=== PATIENT | male | born 1990 | race Caucasian/White ===

== ENCOUNTER 2022-08-08 22:58 | Inpatient (IN) | payer SELFPAY ==
[~2022-08-08] VITALS: Ht 172.7 cm; Wt 63.0 kg
[2022-08-08] MEDS ORDERED: ONDANSETRON HCL 4MG/2ML INJ IV STA (23:04)
[2022-08-08] MEDS ORDERED: SODIUM CHLORIDE 0.9% 1,000 ML IV ONE (23:15)
[2022-08-09 01:02] LABS: HEMATOCRIT. 43.3 % (42.0-52.0); HEMOGLOBIN. 14.3 g/dL (14.0-18.0); MEAN CORPUSCULAR HEMOGLOBIN 28.3 pg (28.0-32.0); MEAN CORPUSCULAR VOLUME 85.5 fL (80.0-94.0); MEAN PLATELET VOLUME 10.3 fl (7.4-10.4); PLATELET 208 x1000/uL (130-400); RED BLOOD CELL COUNT 5.06 mill/uL (4.7-6.1); RED CELL DISTRIBUTION WIDTH 14.5 % (11.6-14.6)
[2022-08-09 01:12] LABS: CHLORIDE 108 mEq/L (98-107)
[2022-08-09 01:25] LABS: ETHANOL BLOOD < 10 mg/dL (-10)
[2022-08-09] MEDS ORDERED: NALO4SPR BOTHNSTRLS (04:01)
[2022-08-09] MEDS ORDERED: ONDA4TAB50 MT (04:01)
[2022-08-09 05:16] LABS: PLATELET ESTIMATE NORMAL
[2022-08-09] MEDS ORDERED: KETOROLAC 30MG/ML VIAL IV ONE (06:45)
[2022-08-09] MEDS ORDERED: ACETAMINOPHEN 325MG TABLET PO PRN ×2 (11:45)
[2022-08-09] MEDS ORDERED: ONDANSETRON HCL 4MG/2ML INJ IV PRN (11:45)
[2022-08-09] MEDS ORDERED: CLONIDINE 0.1MG TABLET PO PRN (11:45)
[2022-08-09] MEDS ORDERED: DOCUSATE SODIUM 100MG CAPSULE PO PRN (11:45)
[2022-08-09] MEDS ORDERED: MAGNESIUM/ALUMINUM HYDROXIDE/SIMETHICONE 30ML UDC PO PRN (11:45)
[2022-08-09] MEDS ORDERED: GUAIFENESIN 200MG/10ML SUGAR FREE UDC PO PRN (11:45)
[2022-08-09] MEDS ORDERED: IPRATROPIUM/ALBUTEROL 0.5-3(2.5)MG/3ML NEB HHN PRN (11:45)
[2022-08-09 12:47] LABS: *AMPHETAMINES SCREEN URINE PRESUMTIVE POSITIVE (NEGATIVE); *BARBITURATES SCREEN URINE NEGATIVE (NEGATIVE); *BENZODIAZEPINES SCREEN URINE NEGATIVE (NEGATIVE); *COCAINE SCREEN URINE NEGATIVE (NEGATIVE); CANNABINOID URINE SCREEN NEGATIVE (NEGATIVE); METHADONE URINE SCREEN NEGATIVE (NEGATIVE); OPIATES URINE SCREEN NEGATIVE (NEGATIVE); PHENCYCLIDINE URINE SCREEN NEGATIVE (NEGATIVE)
[2022-08-09] MEDS: MULTIVITAMINS,THER W-MINERALS TABLET PO SCH (15:29)
[2022-08-09 18:29] LABS: HEPATITIS B SURFACE ANTIGEN NEGATIVE
[2022-08-09] MEDS: SODIUM CHLORIDE 0.9% 1,000 ML IV SCH (19:45)
[2022-08-09] MEDS: FAMOTIDINE 20MG TABLET PO SCH (21:00)
[2022-08-10 02:36] VITALS: BP 101/59; PULSE 66; RESP 18; TEMP 98.6
[2022-08-10] MEDS: SODIUM CHLORIDE 0.9% 1,000 ML IV SCH ×2 (03:45→19:45)
[2022-08-10 04:00] VITALS: BP 101/59; PULSE 66; RESP 18; TEMP 98.6
[2022-08-10 06:23] LABS: BASOPHILS % 0.2 % (0.0-2.0); EOSINOPHILS % 1.5 % (0.0-5.0); HEMATOCRIT. 38.2 % (42.0-52.0); HEMOGLOBIN. 12.8 g/dL (14.0-18.0); LYMPHOCYTES % 24.4 % (20.0-50.0); MEAN CORPUSCULAR HEMOGLOBIN 28.3 pg (28.0-32.0); MEAN CORPUSCULAR VOLUME 84.5 fL (80.0-94.0); MEAN PLATELET VOLUME 10.5 fl (7.4-10.4); MONOCYTES % 8.5 % (2.0-8.0); NEUTROPHILS % 65.4 % (40.0-76.0); PLATELET 167 x1000/uL (130-400); RED BLOOD CELL COUNT 4.52 mill/uL (4.7-6.1); RED CELL DISTRIBUTION WIDTH 14.2 % (11.6-14.6)
[2022-08-10 06:37] LABS: CHLORIDE 107 mEq/L (98-107)
[2022-08-10 06:57] LABS: HDL CHOLESTEROL 80 mg/dL (40-59); LDL CHOLESTEROL 44 mg/dL (5-100)
[2022-08-10 08:00] VITALS: BP 106/69; PULSE 88; RESP 18; TEMP 99.9
[2022-08-10] MEDS: MULTIVITAMINS,THER W-MINERALS TABLET PO SCH (09:20)
[2022-08-10] MEDS: FAMOTIDINE 20MG TABLET PO SCH ×2 (09:20→21:00)
[2022-08-10 12:00] VITALS: BP 105/66; PULSE 61; RESP 18; TEMP 100.4
[2022-08-10 16:00] VITALS: BP 110/62; PULSE 67; RESP 18; TEMP 98.9
[2022-08-10 18:41] VITALS: BP 110/62; PULSE 67; TEMP 98.9; O2SAT 100
[2022-08-12 04:12] LABS: HIV SCREEN 4G Non Reactive (Non Reactive)
== END 2022-08-10 20:49 | disposition home or self-care (01) | DRG 812 ==
LOC: ER 22:58 → 6EST 08-09 08:40 → ENRESERV 08-09 23:55
PROVIDERS: ADMIT Hospitalist; ATTEND Hospitalist
DX: T50.901A Poisoning by unspecified drugs, medicaments and biological substances, accidental (unintentional), initial encounter (principal); G92.8 Other toxic encephalopathy; D72.829 Elevated white blood cell count, unspecified; E80.6 Other disorders of bilirubin metabolism; R74.01 Elevation of levels of liver transaminase levels; F19.10 Other psychoactive substance abuse, uncomplicated; Y92.89 Other specified places as the place of occurrence of the external cause
CPT/HCPCS: 36415; 76705; 80053; 80061; 80305; 80307; 80320; 80329; 84145; 84443; 85025; 86705; 86709; 86803; 87340; 87389; 96361; 96374; 96375; 99285; C1893; J1885; J2405; J7030; G0480

== ENCOUNTER 2022-09-10 16:35 | Emergency (ER) | payer MEDICAID ==
[~2022-09-10] VITALS: Ht 172.7 cm; Wt 63.0 kg
[~2022-09-10 16:35] MED LIST: NALO4SPR BOTHNSTRLS; ONDA4TAB50 MT
[2022-09-10 16:46] VITALS: O2SAT 98
[2022-09-10] MEDS ORDERED: PIPERACILLIN/TAZOBACTAM 3.375GM/50ML PREMIX IV ONE (18:15)
[2022-09-10] MEDS: VANCOMYCIN 1.5GM/250ML IVPB 250 ML IV NR ×2 (18:30→22:38)
[2022-09-10] MEDS: PIPERACILLIN/TAZ 3.375G PREMIX 50 ML IV NR ×3 (18:49→20:26)
[2022-09-10] MEDS ORDERED: MORPHINE SULFATE 4 MG/ML CPJ (NOT FOR IM USE) IV ONE (19:00)
[2022-09-10 19:04] LABS: BASOPHILS % 0.1 % (0.0-2.0); EOSINOPHILS % 1.2 % (0.0-5.0); HEMATOCRIT. 37.4 % (42.0-52.0); HEMOGLOBIN. 12.8 g/dL (14.0-18.0); LYMPHOCYTES % 14.5 % (20.0-50.0); MEAN CORPUSCULAR HEMOGLOBIN 27.9 pg (28.0-32.0); MEAN CORPUSCULAR HGB CONC 34.2 g/dL (31.0-37.0); MEAN CORPUSCULAR VOLUME 81.7 fL (80.0-94.0); MEAN PLATELET VOLUME 10.8 fl (7.4-10.4); NEUTROPHILS % 76.2 % (40.0-76.0); PLATELET 142 x1000/uL (130-400); RED BLOOD CELL COUNT 4.58 mill/uL (4.7-6.1); RED CELL DISTRIBUTION WIDTH 13.7 % (11.6-14.6); WHITE BLOOD COUNT 9.4 x1000/uL (4.5-11.0)
[2022-09-10 19:09] LABS: CHLORIDE 104 mEq/L (98-107); INDEX HEMOLYSI 1 (1-3); INDEX ICTERIC 1 (1-4); INDEX LIPEMIC 1 (1-3); POTASSIUM 3.4 mEq/L (3.5-5.1); SODIUM 136 mEq/L (136-145)
[2022-09-10 19:16] LABS: PROTHROMBIN TIME 10.9 sec (9.6-11.0)
[2022-09-10 19:19] LABS: ALANINE AMINOTRANSFERASE 26 IU/L (13-61); ALBUMIN 3.7 g/dL (3.4-5.0); ASPARTATE AMINOTRANSFERASE 13 IU/L (15-37); BILIRUBIN TOTAL 0.3 mg/dL (0.1-1.0); CALCIUM 8.5 mg/dL (8.5-10.1); CARBON DIOXIDE 27 mEq/L (21-32); CREATININE 0.8 mg/dL (0.6-1.3); GLUCOSE 105 mg/dL (70-105); PROTEIN TOTAL 7.2 g/dL (6.0-8.3); UREA NITROGEN BLOOD 7 mg/dL (7-21)
[2022-09-11] MEDS ORDERED: PIPERACILLIN/TAZOBACTAM 3.375GM/50ML PREMIX IV SCH (02:30)
[2022-09-11] MEDS ORDERED: PIPERACILLIN/TAZ 3.375G PREMIX 50 ML IV SCH ×2 (03:00→16:00)
[2022-09-11 15:37] VITALS: BP 127/74; PULSE 88; RESP 18; TEMP 98.7
[2022-09-11] MEDS ORDERED: VANCOMYCIN 1G PREMIX 200 ML IV SCH (17:00)
== END 2022-09-11 15:44 | disposition home or self-care (01) ==
LOC: ER 16:35
DX: M65.88 Other synovitis and tenosynovitis, other site (principal); F15.10 Other stimulant abuse, uncomplicated
CPT/HCPCS: 99291; 96367; 96375; 80053; 83605; 85025; 85610; 86850; 86900; 86901; 87040; 36415; 84145; 73130; 96365; 96366; 85651; J3370; J2543 ×2; J2270